=== PATIENT | female | born 1990 | race African-American/Black ===

== ENCOUNTER 2017-06-16 13:04 | Inpatient (IN) ==
[2017-06-16] MEDS ORDERED: ONDANSETRON 4 MG/2 ML VIAL IV ONE (14:15)
[2017-06-16] MEDS ORDERED: LACTATED RINGERS 1,000 ML IV ONE (14:15)
[2017-06-16] MEDS ORDERED: MEPERIDINE 50 MG/1 ML VIAL IV ONE (14:15)
[2017-06-16] MEDS ORDERED: ONDANSETRON 4 MG/2 ML VIAL ONE (14:18)
[2017-06-16] MEDS ORDERED: MEPERIDINE 50 MG/1 ML VIAL ONE (14:18)
[2017-06-16] MEDS ORDERED: ONDANSETRON 4 MG/2 ML VIAL IV PRN (17:37)
[2017-06-16] MEDS ORDERED: MEPERIDINE 50 MG/1 ML VIAL IV PRN (17:37)
[2017-06-16] MEDS: TERBUTALINE 1 MG/1 ML VIAL SUBCUT PRN ×2 (17:44→20:20)
[2017-06-16] MEDS ORDERED: ePHEDrine 50 MG/ML AMP IV PRN (23:00)
[2017-06-16] MEDS ORDERED: diphenhydrAMINE 50 MG/1 ML VIAL IV PRN ×2 (23:00)
[2017-06-16] MEDS ORDERED: fentaNYL 2 MCG/ROPIV 0.2% EPID 150 ML EPIDURAL SCH (23:00)
[2017-06-16] MEDS ORDERED: PROMETHAZINE 25 MG/1 ML VIAL IM PRN (23:00)
[2017-06-16] MEDS ORDERED: hydrOXYzine HCL 25 MG/1 ML VIAL IM PRN (23:00)
[2017-06-16] MEDS ORDERED: FAMOTIDINE 20 MG/2 ML VIAL IV ONE (23:02)
[2017-06-16] MEDS ORDERED: CITRIC ACID/SODIUM CITRATE 30 ML UDCUP PO ONE (23:02)
[2017-06-16] MEDS: AMPICILLIN INJ 2,000 MG in SODIUM CHLORIDE 0.9% 100 ML IV SCH (23:25)
[2017-06-16 23:28] LABS: Basophils % 0.1 % (0.0-0.8); Hematocrit 28.5 VOL% (35.7-47.0); Hemoglobin 8.9 GM/DL (12.0-16.0); Immature Granulocytes % 0.4 %; Immature Granulocytes Absolute 0.03 #; Lymphocytes # 0.8 10*3/uL (1.4-4.0); Lymphocytes % 11.5 % (21.3-54.2); Mean Corpuscular HGB Conc 31.2 GM/DL (32-36); Mean Corpuscular Hemoglobin 25 PG (27-34); Mean Corpuscular Volume 78.7 FL (87-102); Monocytes # 0.7 10*3/uL (0.11-0.8); Neutrophils # 5.8 10*3/uL (1.4-7.4); Platelet Count 248 T/CUMM (130-400); Red Blood Count 3.62 MC/CUMM (3.8-5.5); Red Cell Distribution Width 15.6 % (9.3-17.3); White Blood Count 7.3 T/CUMM (4-12)
[2017-06-16] MEDS: LACTATED RINGERS 1,000 ML IV SCH (23:35)
[2017-06-16 23:40] LABS: Albumin 2.2 G/DL (3.4-5.0); Bilirubin,Total 0.6 MG/DL (0.2-1.0); Calcium 8.4 MG/DL (8.5-10.1); Total Protein 6.2 G/DL (6.4-8.3)
[2017-06-16 23:41] LABS: Osmolality,Calculated 272.7 MOS/KG (273-304); Potassium 3.5 MMOL/L (3.5-5.1)
[2017-06-17 00:30] LABS: Apearance,Urine CLEAR (Clear); Bacteria,Urine Occasional /HPF (Few); Bilirubin,Urine Negative (Negative); Blood, Urine Small mg/dL (Negative); Glucose,Urine (UA) Negative (Negative); Ketones,Urine 20 mg/dL (Negative); Mucus,Urine Occasional /LPF (Occasional); Nitrite,Urine Negative (Negative); Protein,Urine Negative; RBC,Urine 6 /HPF (0-4); Renal Epithelial Cells,Urine Occasional /HPF (<1); Squamous Epithelial Cell,Urine Occasional /HPF (0-10); Urine Color Yellow (Yellow); Urine Specific Gravity 1.011 (1.001-1.035); WBC,Urine 1 /HPF (0-6)
[2017-06-17] MEDS ORDERED: INFLUENZA VIRUS VACCINE 0.5 ML SYRINGE IM ONE (01:18)
[2017-06-17] MEDS ORDERED: OXYTOCIN/LR 30 UNIT/1,000 ML BAG IV PRN (04:36)
[2017-06-17] MEDS: LACTATED RINGERS 1,000 ML IV SCH (04:42)
[2017-06-17] MEDS: AMPICILLIN INJ 2,000 MG in SODIUM CHLORIDE 0.9% 100 ML IV SCH (05:04)
[2017-06-17] MEDS ORDERED: LIDOCAINE 1% 50 ML VIAL ONE (07:10)
[2017-06-17] MEDS ORDERED: miSOPROStol 200 MCG TABLET ONE (07:10)
[2017-06-17] MEDS ORDERED: OXYTOCIN/LR 20 UNIT/1,000 ML BAG IV ONE ×2 (07:13→09:32)
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
[2017-06-17] MEDS ORDERED: BISACODYL 10 MG SUPP RECTAL PRN (09:32)
[2017-06-17] MEDS ORDERED: ONDANSETRON 4 MG/2 ML VIAL IV PRN (09:32)
[2017-06-17] MEDS ORDERED: ACETAMINOPHEN 325 MG TABLET PO PRN (09:32)
[2017-06-17] MEDS ORDERED: DIPH/TET/ACEL PERT BOOSTER VACCINE 0.5 ML VIAL IM ONE (09:32)
[2017-06-17] MEDS ORDERED: LANOLIN 50% CREAM 0.3 OZ TUBE TOP PRN (09:32)
[2017-06-17] MEDS ORDERED: RHO(D) IMMUNE GLOBULIN 300 MCG SYRINGE IM ONE (09:32)
[2017-06-17] MEDS ORDERED: HYDROCORTISONE 2.5% RECTAL CREAM 30 GM TUBE TOP PRN (09:32)
[2017-06-17] MEDS ORDERED: WITCH HAZEL PADS 100/JAR TOP PRN (09:32)
[2017-06-17] MEDS ORDERED: BENZOCAINE 20%/MENTHOL 0.5% SPRAY 56 GM CAN TOP PRN (09:32)
[2017-06-17] MEDS ORDERED: MEASLES/MUMPS/RUBELLA VACCINE 0.5 ML VIAL SUBCUT ONE (09:32)
--- NOTE | 2017-06-17 09:32 | Event Note ---
Stage I of labor Patient was admitted on 16 June with early uterine contractions. She spontaneous rupture membranes at 4 cm heart tones were category 1 Epidural anesthetic IV ampicillin Patient received IV Pitocin when she was 9 cm with an anterior lip, on June 17 Stage II Spontaneous delivery of a female Delivery time was 08 52 weight was 7 lbs. 3 oz. Apgars were 9 at 1 minute and 9 at 5 minutes Cord blood and cord gas was obtained Stage III Delivery of the placenta was at 08 54 3 cord vessels were noted 250 cc were noted No lacerations were noted Mother was stable Delivery was attended by the nursery.
[2017-06-17 09:35] LABS: Cord Venous Blood HCO3 20.2 MMOL/L; Cord Venous Blood PCO2 41.3 MMHG; Cord Venous Blood PO2 21.3
[2017-06-17] MEDS: IBUPROFEN 800 MG TABLET PO PRN ×2 (10:35→19:46)
[2017-06-17] MEDS: oxyCODONE/ACETAMINOPHEN 5-325 MG TABLET PO PRN ×2 (14:26→16:43)
[2017-06-17] MEDS: DOCUSATE SODIUM 100 MG CAPSULE PO SCH (20:52)
[2017-06-17] MEDS: guaiFENesin 200 MG/10 ML UDCUP PO PRN (21:31)
[2017-06-18] MEDS: guaiFENesin 200 MG/10 ML UDCUP PO PRN ×2 (04:01→16:30)
[2017-06-18] MEDS: IBUPROFEN 800 MG TABLET PO PRN ×3 (04:06→19:33)
[2017-06-18] MEDS: oxyCODONE/ACETAMINOPHEN 5-325 MG TABLET PO PRN ×3 (04:07→19:33)
[2017-06-18 06:09] LABS: Basophils % 0.2 % (0.0-0.8); Eosinophils % 0.3 % (0.00-10.9); Hematocrit 29.5 VOL% (35.7-47.0); Hemoglobin 9.2 GM/DL (12.0-16.0); Immature Granulocytes % 0.5 %; Immature Granulocytes Absolute 0.03 #; Lymphocytes # 0.7 10*3/uL (1.4-4.0); Lymphocytes % 11.6 % (21.3-54.2); Mean Corpuscular HGB Conc 31.2 GM/DL (32-36); Mean Corpuscular Hemoglobin 25 PG (27-34); Mean Corpuscular Volume 79.9 FL (87-102); Mean Platelet Volume 11.2 FL (9.6-12.0); Monocytes # 0.7 10*3/uL (0.11-0.8); Neutrophils # 4.3 10*3/uL (1.4-7.4); Neutrophils % 75.4 % (38.7-73.9); Platelet Count 211 T/CUMM (130-400); Red Blood Count 3.69 MC/CUMM (3.8-5.5); Red Cell Distribution Width 15.7 % (9.3-17.3); White Blood Count 5.8 T/CUMM (4-12)
[2017-06-18] MEDS: DOCUSATE SODIUM 100 MG CAPSULE PO SCH ×2 (09:57→20:37)
[2017-06-18] MEDS: diphenhydrAMINE CAP 25 MG CAPSULE PO PRN ×2 (20:37)
[2017-06-19] MEDS: guaiFENesin 200 MG/10 ML UDCUP PO PRN ×2 (00:38→06:15)
[2017-06-19] MEDS ORDERED: BENZOCAINE/MENTHOL LOZENGE 18/BOX PO PRN (06:04)
[2017-06-19] MEDS: IBUPROFEN 800 MG TABLET PO PRN (06:06)
[2017-06-19] MEDS: oxyCODONE/ACETAMINOPHEN 5-325 MG TABLET PO PRN (06:06)
[2017-06-19 07:50] VITALS: BP 141/84
--- NOTE | 2017-06-19 08:22 | Discharge Summary ---
Hospital Course - Hospital Course Hospital Course: Ms. Irby presented to the labor department with spontaneous rupture membranes. She subsequently delivered a viable with no complications. She is followed a normal course and she has done well. Her bleeding is minimal with no odor. Her perineum is intact with no edema. Her fundus is firm and midline. Her vital signs and lab values are stable. She is bonding well with her . Contraception options has been discussed with this patient and she desires a bilateral tubal ligation and was sent an appointment for that in our office. She will be discharged home prescriptions for pain and a follow-up appointment in our office. Specialty Discharge - Follow Up or Referrals Follow up with: Maritza Rodriguez MD [Physician] - (Follow-up in 6 weeks.) Discharge Plan - Discharge Data Disposition: Disch To Home/Self Care Condition at Discharge: Stable Discharge Diet: advance to your usual diet, regular diet Activity: resume usual activities as tolerated Hygiene: no restrictions Weight Bearing at Discharge: weight bear as tolerated Driving: no restrictions Contact your physician if you experience:: fever over 101, Shortness of breath, pain uncontrolled by pain medications - Discharge Medications New Acetamin/Codeine 300-30 Tab [Tylenol/Codeine #3] 2 tablet PO Q4H PRN #30 tablet PRN Reason: Pain Moderate (4-7) Ibuprofen Tab [Motrin Tab] 800 mg PO Q6H PRN #30 tablet PRN Reason: Pain Moderate (4-7) No Action Vits #90/Iron Fum/FA [ Formula Tablet] 1 tablet PO DAILY MDD one tab - Follow Up or Referral - Forms/Instructions Exam - Constitutional Vitals: Period Temp Pulse Resp BP Sys/Moe Pulse Ox Last 24 Hr 97.3 F-98.6 F 83-96 18-20 129-141/72-88 96-99 General appearance: no acute distress - Head Head exam: Present: normal inspection - Respiratory Respiratory exam: Present: clear to auscultation bilaterally - Cardiovascular Cardiovascular exam: Present: regular rate and rhythm - GI/Abdominal GI/Abdominal exam: Present: normal bowel sounds, soft - Extremities Exam Extremities exam: Present: normal inspection - Neurological Exam Neurological exam: Present: alert, oriented X3 - Psychiatric Psychiatric exam: Present: normal affect, normal mood - Skin Skin exam: Present: normal color, warm DS: Provider Date of admission: 06/16/17 22:58 Primary care physician: . No PCP Attending physician on admission: Maritza Rodriguez MD Consults: 06/16/17 22:58 Consult to Anesthesiology [CONS] Routine Consulting Provider: Reason for Anesthesiology: Epidural Consult Comment: Epidural for pain managment 06/17/17 09:32 Consult to Salesperson [employer] [CONS] Routine Consult [employer]person [employer]: Breast Feeding Discharging clinician: Ary Flannery CNM Expected date of discharge: 06/19/17
[2017-06-19] MEDS: DOCUSATE SODIUM 100 MG CAPSULE PO SCH (09:00)
--- NOTE | 2017-06-19 11:00 | Anesthesia Post-Op ---
Anesthesia Post OP - Post Ansesthetic Evaluation Patient seen in post op: Yes Resp: within normal limits CV: within normal limits Mental: within normal limits Temp: within normal limits [id number]: within normal limits Nausea and Vomiting: within normal limits Pain: within normal limits
== END 2017-06-19 12:00 | disposition home or self-care (01) | DRG 775 ==
LOC: N.LDOUT 13:04 → N.LD 13:12 → N.OB 06-17 10:31
PROVIDERS: ADMIT Obstetrics & Gynecology; ATTEND Obstetrics & Gynecology

== ENCOUNTER 2018-04-21 04:48 | Inpatient (IN) ==
[2018-04-21] MEDS ORDERED: LACTATED RINGERS 1,000 ML IV SCH ×2 (05:15→14:00)
[2018-04-21 05:17] LABS: Apearance,Urine CLEAR (Clear); Bilirubin,Urine Negative (Negative); Blood, Urine Negative (Negative); Glucose,Urine (UA) 50 mg/dL (Negative); Ketones,Urine 5 mg/dL (Negative); Mucus,Urine Occasional /LPF (Occasional); Nitrite,Urine Negative (Negative); Protein,Urine 30 MG/DL; RBC,Urine 7 /HPF (0-4); Squamous Epithelial Cell,Urine Occasional /HPF (0-10); Urine Color Yellow (Yellow); Urine Specific Gravity 1.026 (1.001-1.035); WBC,Urine 1 /HPF (0-6)
[2018-04-21] MEDS ORDERED: LACTATED RINGERS 1,000 ML IV ONE ×2 (05:27→13:42)
[2018-04-21] MEDS ORDERED: TERBUTALINE 1 MG/1 ML VIAL SUBCUT ONE ×2 (06:12→08:31)
[2018-04-21] MEDS ORDERED: ONDANSETRON 4 MG/2 ML VIAL IV ONE ×2 (06:12→13:42)
[2018-04-21] MEDS ORDERED: MEPERIDINE 50 MG/1 ML VIAL IV ONE (06:12)
[2018-04-21] MEDS ORDERED: MAGNESIUM SULF RIDER 100 ML IV ONE (08:26)
[2018-04-21] MEDS ORDERED: CALCIUM GLUCONATE 1,000 MG in SODIUM CHLORIDE 0.9% 100 ML IV PRN (08:26)
[2018-04-21] MEDS: BETAMETH SODIUM PHOS/ACETATE 30 MG/5 ML VIAL IM SCH ×2 (09:04→20:46)
[2018-04-21] MEDS: MAGNESIUM SULF DRIP 40 GM/1,000 ML ML IV SCH (09:30)
[2018-04-21] MEDS: BUTORPHANOL 2 MG/ML VIAL IV PRN ×3 (10:55→19:19)
[2018-04-21] MEDS: ONDANSETRON 4 MG/2 ML VIAL IV PRN ×2 (10:56→13:58)
[2018-04-21] MEDS ORDERED: diphenhydrAMINE 50 MG/1 ML VIAL IV PRN ×2 (13:42)
[2018-04-21] MEDS ORDERED: CITRIC ACID/SODIUM CITRATE 30 ML UDCUP PO ONE (13:42)
[2018-04-21] MEDS ORDERED: hydrOXYzine HCL 25 MG/1 ML VIAL IM PRN (13:42)
[2018-04-21] MEDS ORDERED: LACTATED RINGERS 500 ML IV ONE (13:42)
[2018-04-21] MEDS ORDERED: PROMETHAZINE 25 MG/1 ML VIAL IM ONE (13:42)
[2018-04-21] MEDS ORDERED: ePHEDrine 50 MG/ML AMP IV PRN (13:42)
[2018-04-21 13:46] LABS: Basophils % 0.2 % (0.0-0.8); Hematocrit 29.7 VOL% (35.7-47.0); Hemoglobin 8.8 GM/DL (12.0-16.0); Immature Granulocytes % 0.3 %; Immature Granulocytes Absolute 0.03 #; Lymphocytes # 0.5 10*3/uL (1.4-4.0); Lymphocytes % 5.7 % (21.3-54.2); Mean Corpuscular HGB Conc 29.6 GM/DL (32-36); Mean Corpuscular Hemoglobin 23 PG (27-34); Mean Corpuscular Volume 77.5 FL (87-102); Mean Platelet Volume 11.3 FL (9.6-12.0); Monocytes # 0.1 10*3/uL (0.11-0.8); Neutrophils # 8.2 10*3/uL (1.4-7.4); Neutrophils % 92.8 % (38.7-73.9); Platelet Count 265 T/CUMM (130-400); Red Blood Count 3.83 MC/CUMM (3.8-5.5); Red Cell Distribution Width 16.1 % (9.3-17.3); White Blood Count 8.9 T/CUMM (4-12)
[2018-04-21] MEDS ORDERED: FAMOTIDINE 20 MG/2 ML VIAL IV ONE (13:50)
[2018-04-21] MEDS ORDERED: fentaNYL 2 MCG/ROPIV 0.2% EPID 150 ML EPIDURAL SCH (14:00)
[2018-04-21 14:15] LABS: Giant Platelets Few; Lymphocytes 5 % (20-55); Platelet Estimate Adequate; Segmented Neutrophils 94 % (50-85); Total Cells Counted 100
[2018-04-21 14:18] LABS: Albumin 2.3 G/DL (3.4-5.0); Bilirubin,Total 0.5 MG/DL (0.2-1.0); Calcium 7.9 MG/DL (8.5-10.1); Osmolality,Calculated 274.7 MOS/KG (273-304); Potassium 3.9 MMOL/L (3.5-5.1); Total Protein 7.2 G/DL (6.4-8.3)
[2018-04-21] MEDS: AMPICILLIN INJ 2,000 MG in SODIUM CHLORIDE 0.9% 100 ML IV SCH ×2 (14:58→21:37)
[2018-04-21] MEDS: LACTATED RINGERS 1,000 ML IV SCH (19:15)
[2018-04-22] MEDS: MAGNESIUM SULF DRIP 40 GM/1,000 ML ML IV SCH
[2018-04-22] MEDS: ONDANSETRON 4 MG/2 ML VIAL IV PRN (01:30)
[2018-04-22] MEDS: BUTORPHANOL 2 MG/ML VIAL IV PRN (01:30)
[2018-04-22] MEDS: AMPICILLIN INJ 2,000 MG in SODIUM CHLORIDE 0.9% 100 ML IV SCH ×2 (03:41→09:12)
[2018-04-22] MEDS ORDERED: ACETAMINOPHEN 325 MG TABLET PO PRN (09:13)
[2018-04-22] MEDS: ACETAMINOPHEN 500 MG TABLET PO PRN ×2 (09:30→19:43)
[2018-04-22] MEDS: SERTRALINE 50 MG TABLET PO SCH (19:56)
[2018-04-23] MEDS: ONDANSETRON 4 MG/2 ML VIAL IV PRN ×2 (00:32→05:00)
[2018-04-23] MEDS ORDERED: MEPERIDINE 25 MG/1 ML VIAL IV PRN (04:57)
[2018-04-23] MEDS: LACTATED RINGERS 1,000 ML IV SCH ×3 (05:00→15:10)
[2018-04-23] MEDS ORDERED: CITRIC ACID/SODIUM CITRATE 30 ML UDCUP PO ONE (05:40)
[2018-04-23] MEDS ORDERED: FAMOTIDINE 20 MG/2 ML VIAL IV ONE (05:40)
[2018-04-23] MEDS ORDERED: AMPICILLIN INJ 1,000 MG in SODIUM CHLORIDE 0.9% 100 ML IV SCH (08:00)
[2018-04-23 11:27] LABS: Apearance,Urine CLEAR (Clear); Bacteria,Urine Occasional /HPF (Few); Bilirubin,Urine Negative (Negative); Blood, Urine Negative (Negative); Glucose,Urine (UA) Negative (Negative); Ketones,Urine Negative (Negative); Mucus,Urine Occasional /LPF (Occasional); Nitrite,Urine Negative (Negative); Protein,Urine Negative; RBC,Urine 1 /HPF (0-4); Squamous Epithelial Cell,Urine Occasional /HPF (0-10); Urine Color Yellow (Yellow); Urine Specific Gravity 1.009 (1.001-1.035); WBC,Urine 1 /HPF (0-6)
[2018-04-23] MEDS ORDERED: AMPICILLIN INJ 2,000 MG in SODIUM CHLORIDE 0.9% 100 ML IV ONE (12:00)
[2018-04-23] MEDS ORDERED: OXYTOCIN/LR 20 UNIT/1,000 ML BAG IV SCH (13:30)
[2018-04-23] MEDS: SERTRALINE 50 MG TABLET PO SCH (13:35)
[2018-04-23] MEDS ORDERED: LIDOCAINE 1% 50 ML VIAL ONE (17:25)
[2018-04-23] MEDS ORDERED: miSOPROStol 200 MCG TABLET ONE (17:25)
[2018-04-23] MEDS ORDERED: METHYLERGONOVINE 0.2 MG/1 ML AMP ONE (17:25)
[2018-04-23] MEDS ORDERED: DIPH/TET/ACEL PERT BOOSTER VACCINE 0.5 ML VIAL IM ONE (17:49)
[2018-04-23] MEDS ORDERED: oxyCODONE/ACETAMINOPHEN 5-325 MG TABLET PO PRN (17:49)
[2018-04-23] MEDS ORDERED: RHO(D) IMMUNE GLOBULIN 300 MCG SYRINGE IM ONE (17:49)
[2018-04-23] MEDS ORDERED: HYDROCORTISONE 2.5% RECTAL CREAM 30 GM TUBE TOP PRN (17:49)
[2018-04-23] MEDS ORDERED: BISACODYL 10 MG SUPP RECTAL PRN (17:49)
[2018-04-23] MEDS ORDERED: ONDANSETRON 4 MG/2 ML VIAL IV PRN (17:49)
[2018-04-23] MEDS ORDERED: MEASLES/MUMPS/RUBELLA VACCINE 0.5 ML VIAL SUBCUT ONE (17:49)
[2018-04-23] MEDS ORDERED: LANOLIN 50% CREAM 0.3 OZ TUBE TOP PRN (17:49)
[2018-04-23] MEDS ORDERED: BENZOCAINE 20%/MENTHOL 0.5% SPRAY 56 GM CAN TOP PRN (17:49)
[2018-04-23] MEDS ORDERED: OXYTOCIN/LR 20 UNIT/1,000 ML BAG IV ONE (17:49)
[2018-04-23] MEDS ORDERED: WITCH HAZEL PADS 100/JAR TOP PRN (17:49)
[2018-04-23] MEDS ORDERED: ACETAMINOPHEN 325 MG TABLET PO PRN (17:49)
[2018-04-23] MEDS: IBUPROFEN 800 MG TABLET PO PRN (22:00)
[2018-04-23] MEDS: DOCUSATE SODIUM 100 MG CAPSULE PO SCH (22:00)
[2018-04-24] MEDS: IBUPROFEN 800 MG TABLET PO PRN ×2 (04:42→17:50)
[2018-04-24 06:52] LABS: Basophils % 0.2 % (0.0-0.8); Eosinophils % 0.2 % (0.00-10.9); Hematocrit 27.7 VOL% (35.7-47.0); Hemoglobin 8.3 GM/DL (12.0-16.0); Immature Granulocytes % 0.3 %; Immature Granulocytes Absolute 0.03 #; Lymphocytes # 1.7 10*3/uL (1.4-4.0); Lymphocytes % 17.8 % (21.3-54.2); Mean Corpuscular Hemoglobin 23 PG (27-34); Mean Corpuscular Volume 75.9 FL (87-102); Mean Platelet Volume 11.2 FL (9.6-12.0); Monocytes # 0.9 10*3/uL (0.11-0.8); Monocytes % 9.2 % (1.7-12.7); Neutrophils % 72.3 % (38.7-73.9); Platelet Count 245 T/CUMM (130-400); Red Blood Count 3.65 MC/CUMM (3.8-5.5); Red Cell Distribution Width 16.1 % (9.3-17.3); White Blood Count 9.6 T/CUMM (4-12)
[2018-04-24] MEDS: FERROUS SULFATE 325 MG TABLET PO SCH ×2 (09:28→20:27)
[2018-04-24] MEDS: oxyCODONE/ACETAMINOPHEN 5-325 MG TABLET PO PRN ×2 (09:30→17:50)
[2018-04-24] MEDS: DOCUSATE SODIUM 100 MG CAPSULE PO SCH ×2 (09:30→20:27)
[2018-04-25] MEDS: IBUPROFEN 800 MG TABLET PO PRN (02:28)
[2018-04-25] MEDS: DOCUSATE SODIUM 100 MG CAPSULE PO SCH ×2 (08:08→22:14)
[2018-04-25] MEDS: FERROUS SULFATE 325 MG TABLET PO SCH ×2 (08:08→22:14)
[2018-04-25] MEDS: oxyCODONE/ACETAMINOPHEN 5-325 MG TABLET PO PRN ×3 (08:09→22:17)
[2018-04-26] MEDS: oxyCODONE/ACETAMINOPHEN 5-325 MG TABLET PO PRN (08:04)
[2018-04-26 09:10] VITALS: BP 152/96
[2018-04-26] MEDS: FERROUS SULFATE 325 MG TABLET PO SCH (09:51)
[2018-04-26] MEDS: DOCUSATE SODIUM 100 MG CAPSULE PO SCH (09:51)
== END 2018-04-26 12:15 | disposition home or self-care (01) | DRG 775 ==
LOC: N.LDOUT 04:48 → N.LD 04:50 → N.OB 04-22 19:25 → N.LD 04-23 04:56 → N.OB 04-23 20:45
PROVIDERS: ADMIT Obstetrics & Gynecology; ATTEND Obstetrics & Gynecology